=== PATIENT | male | born 1975 | race African-American/Black ===

== ENCOUNTER 2019-03-31 01:27 | Emergency (ER) | payer MEDICAID, MEDICARE, OTHER ==
[2019-03-31] MEDS ORDERED: Gabapentin 400 MG Cap PO SCH (02:15)
--- NOTE | 2019-03-31 02:51 | EDM.PDOCBH ---
ED HPI GENERAL MEDICAL PROBLEM - General Chief Complaint: Behavioral/Psych Stated Complaint: MEDICAL [facility]IA [facility] Time Seen by Provider: 03/31/19 02:20 Source of Information: Reports: Patient History Limitations: Reports: Other (no old records) - History of Present Illness INITIAL COMMENTS - FREE TEXT/NARRATIVE: 43 yo male with a pHx of mental health issues came up to this area from [facility] to visit his son. He lives in a care home in [facility]. He doesn't have a ride back to [facility] so came here at 0200h asking for "an emergency ride" to the [facility]. He admits he has not had his meds for the past 2 days. He denies suicidal ideation. He seems quite surprised and also thinks we are lying to him when we tell him that we have no such service this time of the night especially. He asks for a taxi ride that we would pay for. We told him there are no taxi's, again he seems to not believe us. We offered him to wait until the morning in the lobby and we could get a clinical social work therapist on the job and he says he doesn't feel safe in the lobby. He got here when family members who didn't want him at the home anymore dropped him off at the [place]. Police noticed him there and talked to him. When they determined he had a mental health hx they sent him here via EMS he says with the promise that we would get him a ride home. Claims he lost him meds about the time he arrived up in the [place] area about 2 d ago. Admits to use of ETOH and some street drugs earlier this chikis. Onset: Unknown/Unsure Duration: Hour(s): Location: Reports: Generalized (Has no ride home.) Quality: Reports: Other (denies pain) Severity: Mild Improves with: Reports: Other (a ride to his care home in [facility]) Worsens with: Reports: Other (the longer he is away from his care home. ) Context: Reports: Other (See HPI) Associated Symptoms: Reports: No Other Symptoms Treatments LEATHER COLORER: Reports: Other (see below) (none) - Related Data Allergies Allergy/AdvReac Type Severity Reaction Status Date / Time naproxen Allergy Rash Verified 03/31/19 01:39 Home Meds: Home Meds Gabapentin [Neurontin] 400 mg PO TID 10/30/19 [History] Nortriptyline 50 mg PO BEDTIME 03/31/19 [History] QUEtiapine [SEROquel] 50 mg PO BEDTIME 03/31/19 [History] risperiDONE [Risperidone] 0.5 mg PO BEDTIME 03/31/19 [History] Past Medical History HEENT History: Reports: Impaired Vision Gastrointestinal History: Reports: GERD Neurological History: Reports: Brain Injury Psychiatric History: Reports: Anxiety, Depression, PTSD Social & Family History - Tobacco Use Smoking Status *Q: Current Some Day Smoker Years of Tobacco use: 20 Packs/Tins Daily: 0.2 - Caffeine Use Caffeine Use: Reports: None - Alcohol Use Date of Last Drink: 03/30/19 - Recreational Drug Use Recreational Drug Use: Yes Recreational Drug Type: Reports: Marijuana/Hashish Recreational Drug Use Frequency: Socially ED ROS GENERAL - Review of Systems Review Of Systems: ROS reveals no pertinent complaints other than HPI. Psychiatric: Reports: Anxiety (now about not being able to get back home. ). Denies: Homicidal Ideation, Suicidal Ideation ED EXAM, BEHAVIORAL HEALTH - Physical Exam Exam: See Below Exam Limited By: No Limitations General Appearance: Alert, WD/WN, No Apparent Distress, Other (Keep repeating his predicament over and over thinking that if he told us enough times or the right person that we would magically come up with a ride tonight for him to [facility].) Eye Exam: Bilateral Eye: Normal Inspection Ears: Hearing Grossly Normal Nose: Normal Inspection, No Blood Throat/Mouth: Normal Inspection, Normal Voice, No Airway Compromise Head: Atraumatic, Normocephalic Neck: Normal Inspection Respiratory/Chest: No Respiratory Distress Cardiovascular: Regular Rate, Rhythm Extremities: Normal Inspection Neurological: Alert, Normal Mood/Affect, CN II-XII Intact, Normal Cognition, No Motor/Sensory Deficits, Oriented x 3 Psychiatric: Alert, Normal Cognition, Other (mildly anxious) Skin Exam: Warm, Dry, Intact, Normal color, No rash COURSE, BEHAVIORAL HEALTH COMP - Course Vital Signs: Last Vital Signs Temp 37.4 C 03/31/19 01:46 Pulse 99 03/31/19 01:46 Resp 18 03/31/19 01:46 BP 125/101 H 03/31/19 01:46 Pulse Ox 100 03/31/19 01:46 Orders, Labs, Meds: Medications Discontinued Medications Generic Name Dose Route Start Last Admin Trade Name Gustavo PRN Reason Stop Dose Admin Gabapentin 400 mg 03/31/19 02:15 03/31/19 02:29 Neurontin PO 400 mg DAILY SHANE Administration Departure - Departure Time of Disposition: 02:58 Disposition: Home, Self-Care 01 Condition: Good Clinical Impression: Need for nursing home social worker intervention - Discharge Information *PRESCRIPTION DRUG MONITORING PROGRAM REVIEWED*: No *COPY OF PRESCRIPTION DRUG MONITORING REPORT IN PATIENT JAZ: No Instructions: Living With Anxiety Referrals: PCP,None [Primary Care Provider] - Forms: ED Department Discharge Additional Instructions: Get back on your regular meds PEDRO.
== END 2019-03-31 03:13 | disposition home or self-care (01) ==
LOC: JP.ED 01:27
DX: Z00.00 Encounter for general adult medical examination without abnormal findings (principal); F41.9 Anxiety disorder, unspecified; F32.9 Major depressive disorder, single episode, unspecified; Z88.6 Allergy status to analgesic agent; F17.210 Nicotine dependence, cigarettes, uncomplicated; Z79.899 Other long term (current) drug therapy
CPT/HCPCS: 99284; A9270